=== PATIENT | male | born 1980 | race Hispanic/Latino ===

== ENCOUNTER 2017-01-03 07:13 | Emergency (ER) | payer MEDICAID, OTHER ==
[2017-01-03 07:26] VITALS: BP 194/103; PULSE 69; RESP 18; TEMP 97.5; O2SAT 97
--- NOTE | 2017-01-03 08:12 | ED PDOC ---
HPI: Headache Time Seen by Provider: 01/03/17 07:37 Chief Complaint (Nursing): Dizziness/Lightheaded Chief Complaint (Provider): Dizziness/Lightheaded History Per: Patient History/Exam Limitations: no limitations Onset/Duration Of Symptoms: Hrs (x3 hours) Current Symptoms Are (Timing): Still Present Additional Complaint(s): 36 y/o male presents to the emergency department with a complaint of feeling dizziness when tilting head to the left and right side since 4am this morning. Associated with blurry vision, right-sided headache, and nausea. Reports taking Advil without the relief of symptoms. Patient states he has history of vertigo before but never severe compared to this episode. Denies vomiting, chest pain, shortness of breath, and noises such as ringing from the ears. Past Medical History Reviewed: Historical Data, Nursing Documentation, Vital Signs Vital Signs: Last Vital Signs Temp 97.5 F L 01/03/17 07:19 Pulse 69 01/03/17 07:19 Resp 18 01/03/17 07:19 BP 194/103 H 01/03/17 07:19 Pulse Ox 97 01/03/17 07:19 - Medical History PMH: Anxiety, Asthma, Depression, HTN, Schizophrenia Denies: Rheumatoid Arthritis - Family History Family History: States: Unknown Family Hx - Social History Current smoker - smoking cessation education provided: Yes (Heavy Smoker > 10 Cigarettes Daily) Alcohol: None Drugs: Denies - Home Medications Home Medications: Ambulatory Orders Medication Instructions Recorded Benztropine Mesylate 1 mg PO 02/04/14 Cholecalciferol (Vitamin D3) 1,000 iu PO DAILY 02/04/14 [Vitamin D3] Citalopram Hydrobromide 20 mg PO DAILY 02/04/14 Divalproex [Depakote DR] 250 mg PO BID 02/04/14 Haloperidol [Haldol] 5 mg PO BID 02/04/14 QUEtiapine [SEROquel] 100 mg PO DAILY 02/04/14 Zolpidem Tartrate [Zolpidem] 10 mg PO HS 02/04/14 Clotrimazole 1% Cream [Lotrimin 1%] 1 appl TP BID #1 tube 02/13/14 Meclizine [Meclizine*] 25 mg PO TID #30 tab 01/03/17 - Allergies Allergies/Adverse Reactions: Allergies Allergy/AdvReac Type Severity Reaction Status Date / Time No Known Allergies Allergy Verified 02/04/14 05:49 Review of Systems ROS Statement: Except As Marked, All Systems Reviewed And Found Negative Eyes: Positive for: Vision Change (Blurry) ENT: Negative for: Ear Pain (or ringing noise) Cardiovascular: Negative for: Chest Pain Respiratory: Negative for: Shortness of Breath Gastrointestinal: Positive for: Nausea. Negative for: Vomiting Neurological: Positive for: Headache (Right sided), Dizziness (with tilting of the head to both sides) Physical Exam - Reviewed Nursing Documentation Reviewed: Yes Vital Signs Reviewed: Yes - Physical Exam Appears: Positive for: Non-toxic, No Acute Distress (morbidly obese but comfortable) Head Exam: Positive for: ATRAUMATIC, NORMAL INSPECTION, NORMOCEPHALIC Skin: Positive for: Normal Color, Warm, Dry Eye Exam: Positive for: Normal appearance, EOMI, PERRL. Negative for: Nystagmus Neck: Positive for: Normal, Supple Extremity: Positive for: Normal ROM (Moving all extremities normally. ). 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 Negative for: Motor/Sensory Deficits - Laboratory Results Result Diagrams: 01/03/17 08:28 01/03/17 08:28 - ECG O2 Sat by Pulse Oximetry: 97 (RA) Pulse Ox Interpretation: Normal - Progress Re-evaluation Time: 10:20 Condition: Re-examined, Improved Medical Decision Making Medical Decision Making: Time: 08:00 Initial impression: Vertigo. Differential includes central and peripheral vertigo. List includes vestibular vertigo and benign positional vertigo Initial plan: --Head CT --EKG --BMP --Troponin I --Tylenol 650 mg PO --Antivert 25 mg PO --Reevaluation Time: 09:12 --Head CT FINDINGS: HEMORRHAGE: No intracranial hemorrhage. BRAIN: No evidence of large acute infarct. . There is mild localized superior bifrontal cortical atrophic changes with overlying sulcal enlargement. VENTRICLES: Unremarkable. No hydrocephalus. CALVARIUM: Unremarkable. PARANASAL SINUSES: Unremarkable as visualized. No significant inflammatory changes. MASTOID AIR CELLS: Unremarkable as visualized. No inflammatory changes. OTHER FINDINGS: None. IMPRESSION: No acute intracranial hemorrhage. Mild localized superior bifrontal cortical atrophic changes with overlying sulcal enlargement. Time: 1020 Upon provider reevaluation patient is feeling better, is medically stable, and requires no further treatment in the ED at this time. Patient will be discharged home with Rx for Meclizine 25 mg. Counseling was provided and all questions were answered regarding diagnosis and need for follow up with primary care doctor. There is agreement to discharge plan. Return if symptoms persist or worsen. Clinical Impression: Vertigo Scribe Attestation: Documented by Tiny Schuster, acting as a scribe for Manohar Santiago MD. Provider Scribe Attestation: All medical record entries made by the Scribe were at my direction and personally dictated by me. I have reviewed the chart and agree that the record accurately reflects my personal performance of the history, physical exam, medical decision making, and the department course for this patient. I have also personally directed, reviewed, and agree with the discharge instructions and disposition. Disposition - Clinical Impression Clinical Impression: Vertigo - Patient ED Disposition Is Patient to be Admitted: No Doctor Will See Patient In The: Office Counseled Patient/Family Regarding: Studies Performed, Diagnosis, Need For Followup - Disposition Referrals: [facility] [Outside] Disposition: Routine/Home Disposition Time: 10:20 Condition: GOOD Additional Instructions: Return for worsening. Follow up with your PCP in 2-3 days. Prescriptions: Meclizine [Meclizine*] 25 mg PO TID #30 tab Instructions: Vertigo (ED)
[2017-01-03 08:31] LABS: BASO % 0.5 % (0.0-2.0); EOS # 0.4 K/uL (0.0-0.7); EOS % 4.9 % (0.0-4.0); LYMPH # 1.6 K/uL (1.0-4.3); MEAN CELL VOLUME 73.1 fl (80.0-94.0); MEAN CORPUSCULAR HEMOGLOBIN 23.4 pg (27.0-31.0); MEAN PLATELET VOLUME 8.1 fl (7.2-11.7); MONO # 0.7 K/uL (0.0-0.8); MONO % 8.3 % (0.0-10.0); NEUT # 5.2 K/uL (1.8-7.0); NEUT % 66.3 % (50.0-75.0); NRBC % 0.1 % (0.0-0.0); RED CELL DISTRIBUTION WIDTH 16.2 % (11.5-14.5); WHITE BLOOD COUNT 7.8 K/uL (4.8-10.8)
[2017-01-03 08:51] LABS: BLOOD UREA NITROGEN 19 mg/dl (9-20); CALCIUM 9.4 mg/dL (8.4-10.2); CARBON DIOXIDE 26 mmol/L (22-30); CHLORIDE 104 mmol/L (98-107); GFR AFRICAN-AMERICAN > 60; GLUCOSE,RANDOM 105 mg/dL (75-110); POTASSIUM 3.7 MMOL/L (3.6-5.0); SODIUM 139 mmol/l (132-148)
--- NOTE | 2017-01-03 09:13 | CT ---
PROCEDURE: CT HEAD WITHOUT CONTRAST. HISTORY: dizziness COMPARISON: None available. TECHNIQUE: Axial computed tomography images were obtained through the head/brain without intravenous contrast. Radiation dose: Total exam DLP = 2258.95mGy-cm. This CT exam was performed using one or more of the following dose reduction techniques: Automated exposure control, adjustment of the mA and/or kV according to patient size, and/or use of iterative reconstruction technique. FINDINGS: HEMORRHAGE: No intracranial hemorrhage. BRAIN: No evidence of large acute infarct. . There is mild localized superior bifrontal cortical atrophic changes with overlying sulcal enlargement. VENTRICLES: Unremarkable. No hydrocephalus. CALVARIUM: Unremarkable. PARANASAL SINUSES: Unremarkable as visualized. No significant inflammatory changes. MASTOID AIR CELLS: Unremarkable as visualized. No inflammatory changes. OTHER FINDINGS: None. IMPRESSION: No acute intracranial hemorrhage. Mild localized superior bifrontal cortical atrophic changes with overlying sulcal enlargement.
--- NOTE | 2017-01-03 20:47 | CARD ---
APPROVED REPORT EKG Measurement Heart [id number] <Conclusion> Normal sinus rhythm Incomplete right bundle branch block Borderline ECG
== END 2017-01-03 10:36 | disposition home or self-care (01) ==
LOC: H.ER 07:13
DX: R42 Dizziness and giddiness (principal)

== ENCOUNTER 2017-12-24 19:49 | Emergency (ER) | payer MEDICAID ==
--- NOTE | 2017-12-24 20:32 | ED PDOC ---
HPI: General Adult Time Seen by Provider: 12/24/17 20:02 Chief Complaint (Nursing): Dizziness/Lightheaded Chief Complaint (Provider): dizziness History Per: Patient History/Exam Limitations: no limitations Onset/Duration Of Symptoms: Days (1 year, worse 1 week), Waxing/Waning Additional Complaint(s): 37 y/o male history of schizophrenia presents for evaluation of intermittent dizziness x 1 year, more consistent in the last week. Patient describes dizziness as "room spinning", worse with positional changes. Patient also reports headaches with the dizziness. Denies fever, nausea/vomiting, vision changes, extremity numbness/weakness, chest pain, shortness of breath, palpitations, abdominal pain, drug/alcohol use. Past Medical History Reviewed: Historical Data, Nursing Documentation, Vital Signs Vital Signs: Last Vital Signs Temp 98.4 F 12/24/17 19:53 Pulse 75 12/24/17 19:53 Resp 17 12/24/17 19:53 BP 175/99 H 12/24/17 19:53 Pulse Ox 96 12/24/17 21:35 - Medical History PMH: Anxiety, Asthma, Depression, HTN, Schizophrenia Denies: Rheumatoid Arthritis - Surgical History Surgical History: No Surg Hx - Family History Family History: States: Unknown Family Hx - Social History Current smoker - smoking cessation education provided: Yes SMOKER/PACKS PER DAY:: 3 - Home Medications Home Medications: Ambulatory Orders Medication Instructions Recorded Benztropine Mesylate 1 mg PO 02/04/14 Cholecalciferol (Vitamin D3) 1,000 iu PO DAILY 02/04/14 [Vitamin D3] Citalopram Hydrobromide 20 mg PO DAILY 02/04/14 Divalproex [Depakote DR] 250 mg PO BID 02/04/14 Haloperidol [Haldol] 5 mg PO BID 02/04/14 QUEtiapine [SEROquel] 100 mg PO DAILY 02/04/14 Zolpidem Tartrate [Zolpidem] 10 mg PO HS 02/04/14 Clotrimazole 1% Cream [Lotrimin 1%] 1 appl TP BID #1 tube 02/13/14 Meclizine [Meclizine*] 25 mg PO TID #30 tab 01/03/17 Meclizine [Meclizine*] 25 mg PO TID PRN #21 tab 12/24/17 - Allergies Allergies/Adverse Reactions: Allergies Allergy/AdvReac Type Severity Reaction Status Date / Time No Known Allergies Allergy Verified 02/04/14 05:49 Review of Systems ROS Statement: Except As Marked, All Systems Reviewed And Found Negative Neurological: Positive for: Headache, Dizziness Physical Exam - Reviewed Nursing Documentation Reviewed: Yes Vital Signs Reviewed: Yes - Physical Exam Appears: Positive for: Well, Non-toxic, No Acute Distress Head Exam: Positive for: ATRAUMATIC, NORMAL INSPECTION, NORMOCEPHALIC Skin: Positive for: Normal Color Eye Exam: Positive for: Normal appearance, EOMI, PERRL ENT: Positive for: Normal ENT Inspection Cardiovascular/Chest: Positive for: Regular Rate, Rhythm Respiratory: Positive for: Normal Breath Sounds Gastrointestinal/Abdominal: Positive for: Normal Exam Back: Positive for: Normal Inspection Extremity: Positive for: Normal ROM Neurologic/Psych: Positive for: Alert, Oriented (x3) - Laboratory Results Result Diagrams: 12/24/17 20:35 12/24/17 20:35 - ECG O2 Sat by Pulse Oximetry: 96 - Progress ED Course And Treament: labs, urine, ekg, CT head, Meclizine PO, orthostatics EXAM: CT Head Without Intravenous Contrast EXAM DATE/TIME: Examination ordered 12/24/2017 8:27 PM. Image number total count reviewed 330 CLINICAL HISTORY: The patient is 37 years old and is male; Pain and signs and symptoms; Dizziness ; Headache; Headache not specified; Additional info: Dizziness, headaches Facility exam id and description: Ct_heads head w/o contrast. Sent prior CT head from 01-03-2017 TECHNIQUE: Axial computed tomography images of the head/brain without intravenous contrast. All CT scans at this facility use at least one of these dose optimization techniques: automated exposure control; mA and/or kV adjustment per patient size (includes targeted exams where dose is matched to clinical indication); or iterative reconstruction. Coronal and sagittal reformatted images were created and reviewed. COMPARISON: CT - HEAD W/O CONTRAST 01/03/2017 8:38 AM FINDINGS: BRAIN: Stable bifrontal volume loss.. No hemorrhage. No significant white matter disease. No edema. VENTRICLES: Unremarkable. No ventriculomegaly. BONES/JOINTS: Unremarkable. No acute fracture. SOFT TISSUES: Unremarkable. SINUSES: Unremarkable as visualized. No acute sinusitis. MASTOID AIR CELLS: Unremarkable as visualized. No mastoid effusion. IMPRESSION: Stable bifrontal volume loss. On re-eval, patient states dizziness improved. Patient educated on findings, discharged with rx Meclizine. Patient was educated on smoking cessation. Diet. Exercise Advised follow up PMD 2-3 days REturn precautions given Disposition - Clinical Impression Clinical Impression: Vertigo, Hypertension - Patient ED Disposition Is Patient to be Admitted: No Counseled Patient/Family Regarding: Studies Performed, Diagnosis, Need For Followup, Rx Given - Disposition Referrals: [facility] [Outside] Disposition: Routine/Home Disposition Time: 23:20 Condition: IMPROVED Prescriptions: Meclizine [Meclizine*] 25 mg PO TID PRN #21 tab PRN Reason: Dizziness Instructions: Vertigo (a Type of Dizziness), Controlling Your Blood Pressure Through Lifestyle, High Blood Pressure in Adults
[2017-12-24 20:40] LABS: BASO % 0.5 % (0.0-2.0); EOS # 0.1 K/uL (0.0-0.7); EOS % 1.4 % (0.0-4.0); HEMOGLOBIN 13.1 g/dL (12.0-18.0); LYMPH # 2.4 K/uL (1.0-4.3); LYMPH % 23.7 % (20.0-40.0); MEAN CELL VOLUME 72.1 fl (80.0-94.0); MEAN CORPUSCULAR HGB CONC 33.3 g/dL (33.0-37.0); MEAN PLATELET VOLUME 8.4 fl (7.2-11.7); MONO # 0.7 K/uL (0.0-0.8); MONO % 6.8 % (0.0-10.0); NEUT # 6.9 K/uL (1.8-7.0); NEUT % 67.6 % (50.0-75.0); NRBC % 0.1 % (0.0-0.0); RBC 5.45 Mil/uL (4.40-5.90); RED CELL DISTRIBUTION WIDTH 16.3 % (11.5-14.5); WHITE BLOOD COUNT 10.2 K/uL (4.8-10.8)
[2017-12-24 20:46] LABS: SQUAMOUS EPITHIAL 2 /hpf (0-5); URINE BILIRUBIN NEGATIVE (NEGATIVE); URINE BLOOD NEGATIVE (NEGATIVE); URINE CLARITY SLIGHTY-CLOUDY (Clear); URINE COLOR YELLOW (YELLOW); URINE GLUCOSE (UA) NEG (Normal); URINE LEUKOCYTE ESTERASE NEG Leu/uL (Negative)
[2017-12-24 20:47] LABS: URINE PROTEIN >=300 mg/dL (NEGATIVE)
[2017-12-24 20:53] LABS: ALB/GLOB RATIO 1.4 (1.0-2.1); ALBUMIN 4.3 g/dL (3.5-5.0); ALT/SGPT 37 U/L (21-72); AST/SGOT 27 U/L (17-59); BLOOD UREA NITROGEN 17 mg/dl (9-20); CALCIUM 9.3 mg/dL (8.4-10.2); GFR NON-AFRICAN AMERICAN > 60
[2017-12-24 23:27] VITALS: BP 181/85; PULSE 74; RESP 19; TEMP 98.8; O2SAT 95
--- NOTE | 2017-12-25 08:23 | CARD ---
APPROVED REPORT Date of service: 12/24/2017 EKG Measurement Heart [id number] <Conclusion> Normal sinus rhythm Incomplete right bundle branch block Nonspecific ST and T wave abnormality Prolonged QT Abnormal ECG
--- NOTE | 2017-12-25 08:36 | CT ---
Date of service: 12/24/2017 PROCEDURE: CT HEAD WITHOUT CONTRAST. HISTORY: dizziness, headaches COMPARISON: 01/03/2017 TECHNIQUE: Axial computed tomography images were obtained through the head/brain without intravenous contrast. Radiation dose: Total exam DLP = mGy-cm. This CT exam was performed using one or more of the following dose reduction techniques: Automated exposure control, adjustment of the mA and/or kV according to patient size, and/or use of iterative reconstruction technique. FINDINGS: HEMORRHAGE: 915.59 BRAIN: No mass effect or edema. Mild bilateral frontal atrophy slightly greater than expected for patient age. No evidence of acute infarct. VENTRICLES: Unremarkable. No hydrocephalus. CALVARIUM: Unremarkable. PARANASAL SINUSES: Unremarkable as visualized. No significant inflammatory changes. MASTOID AIR CELLS: Unremarkable as visualized. No inflammatory changes. OTHER FINDINGS: None. IMPRESSION: No intracranial mass, hemorrhage or evidence of acute infarct. Mild stable bifrontal atrophy. The preliminary findings for this examination were reported by [facility] at 9:26 p.m. on 12/29/2017. There is concurrence of this report with the preliminary findings.
== END 2017-12-24 23:48 | disposition home or self-care (01) ==
LOC: H.ER 19:49
DX: R42 Dizziness and giddiness (principal)